=== PATIENT | male | born 2000 | race Caucasian/White ===

== ENCOUNTER 2021-06-05 11:50 | Outpatient (CLI) | payer OTHER | END 2021-06-05 15:13 | disposition home or self-care (01) | LOC: LAB 11:50 | DX: Z20.828 Contact with and (suspected) exposure to other viral communicable diseases (principal) ==

== ENCOUNTER → 2021-06-17 11:55 | Outpatient (CLI) | payer OTHER | END | disposition home or self-care (01) | LOC: LAB 11:55 | DX: Z20.828 Contact with and (suspected) exposure to other viral communicable diseases (principal) ==